=== PATIENT | female | born 1935 | race African-American/Black ===

== ENCOUNTER 2017-03-25 20:05 | Emergency (ER) | payer MEDICARE, MEDICAID ==
[~2017-03-25] VITALS: Ht 165.1 cm; Wt 63.5 kg
[~2017-03-25 20:05] MED LIST: AMLO2.5T45 PO; ATOR40TA70 PO; BRIM15DR2 EACHEYE; INSU200I4 SQ; TRAV2.5D EACHEYE; ZOLP5TAB8 PO
[2017-03-25] MEDS ORDERED: ONDANSETRON HCL 4MG/2ML VIAL IV STA (22:32)
[2017-03-25] MEDS ORDERED: SODIUM CHLORIDE 0.9% 1,000 ML IV ONE (22:32)
[2017-03-25 23:58] LABS: BASOPHILS % 0.2 % (0.0-2.0); CHLORIDE 104 mEq/L (98-107); EOSINOPHILS % 0.3 % (0.0-5.0); HEMATOCRIT. 34.7 % (36.0-48.0); HEMOGLOBIN. 11.1 g/dL (12.0-16.0); LYMPHOCYTES % 7.4 % (20.0-50.0); MEAN CORPUSCULAR HEMOGLOBIN 26.9 pg (28.0-32.0); MEAN CORPUSCULAR VOLUME 84.1 fL (81.0-99.0); MEAN PLATELET VOLUME 7.1 fl (7.4-10.4); MONOCYTES % 8.3 % (2.0-8.0); NEUTROPHILS % 83.8 % (40.0-76.0); PLATELET 499 x1000/uL (130-400); RED BLOOD CELL COUNT 4.12 mill/uL (4.2-5.4); RED CELL DISTRIBUTION WIDTH 14.4 % (11.6-14.6)
[2017-03-26 00:01] LABS: INR 1.2; PROTHROMBIN TIME 12.6 sec (9.4-11.6)
[2017-03-26 00:11] LABS: CARBON DIOXIDE 23 mEq/L (21-32)
[2017-03-26 00:23] VITALS: BP 10/70
== END 2017-03-26 01:24 | disposition left against medical advice (07) ==
LOC: ER 20:05
DX: K43.6 Other and unspecified ventral hernia with obstruction, without gangrene (principal); N28.9 Disorder of kidney and ureter, unspecified; E11.9 Type 2 diabetes mellitus without complications; Z90.49 Acquired absence of other specified parts of digestive tract; Z85.038 Personal history of other malignant neoplasm of large intestine; Z98.890 Other specified postprocedural states
CPT/HCPCS: 36415; 74176; 80053; 82962; 83690; 85025; 85610; 93005; 99285; J7030